=== PATIENT | male | born 1925 | race Caucasian/White ===

== ENCOUNTER 2016-11-02 17:50 | Inpatient (IN) | payer OTHER ==
[~2016-11-02] VITALS: Ht 175.3 cm; Wt 74.4 kg
[2016-11-02] MEDS ORDERED: OMEP20CA10 PO (18:16)
[2016-11-02] MEDS ORDERED: TAMS-12 PO (18:16)
[2016-11-02] MEDS ORDERED: SIMV40TA5 PO (18:16)
[2016-11-02] MEDS ORDERED: FERR-58 PO (18:16)
[2016-11-02] MEDS ORDERED: DOCU-25 PO (18:16)
[2016-11-02] MEDS ORDERED: ASPI-991 PO (18:16)
[2016-11-02] MEDS ORDERED: HYDR-548 PO (18:16)
[2016-11-02] MEDS ORDERED: SERT25TA PO (18:17)
[2016-11-02] MEDS ORDERED: QUET25TA PO (18:17)
[2016-11-02] MEDS ORDERED: ALEN70TA45 PO (18:18)
[2016-11-02] MEDS ORDERED: MAGNESIUM HYDROXIDE 30 ML UDC PO PRN (18:30)
[2016-11-02] MEDS ORDERED: LORAZEPAM 0.5 MG TABLET PO PRN (18:30)
[2016-11-02] MEDS ORDERED: MAG HYDROX/AL HYDROX/SIMETH 30 ML UDC PO PRN (18:30)
--- NOTE | 2016-11-02 18:30 | NUR ---
PATIENT ADMITTED ON A 5150 HOLD FOR GD AND DTS UNDER THE CARE OF DR DESIR AND DR TRIPP. PATIENT ARRIVED ON UNIT VIA STRETCHER, STABLE CONDITION, DR DESIR AWARE OF ADMISSION. ADMITTING ORDERS IN SYSTEM, BELONGINGS COLLECTED VITALS TAKEN, (BP, 114/63, 02- 97, TEMP 97.2, PULSE 86, RESPIRATIONS 19, WEIGHT- 162). PATIENT INSTRUCTED TO RING CALL VIDAL FOR ASSISTANCE WITH AMBULATION. CALL VIDAL WITHIN REACH, BED IN LOW POSITION, FALL PRECAUTIONS IMPLEMENTED, WILL CONTINUE TO MONITOR Q 15 MIN FOR SAFETY AND BEHAVIOR. WILL ENDORSE TO ONCOMING SHIFT FOR COMPLETION OF ADMISSION.
[2016-11-02 20:00] VITALS: BP 130/68
--- NOTE | 2016-11-02 20:30 | NUR ---
GPS RN NOTES RECEIVED PATIENT AWAKE IN BED. ASSESSMENT OF BODY SYSTEMS COMPLETED. SKIN/BODY CHECK DONE. PICTURES TAKEN. PATIENT IS ALERT AND ORIENTED X 2 WITH CONFUSION. PATIENT DOES NOT KNOW WHY HE WAS ADMITTED. AMBULATES WITH WALKER. USES URINAL FOR VOIDING. SON CAME TO SEE PATIENT. BELONGINGS CHECKED FOR CONTRABAND ITEMS. CONTRABAND ITEM PLACED IN CONTRABAND LOCKER. PATIENT MADE COMFORTABLE IN BED. NEEDS ATTENDED.
--- NOTE | 2016-11-02 22:00 | NUR ---
GPS RN NOTES CALL MADE TO [employer], CHARGE NURSE WAS ABLE TO SPEAK WITH JIMMIE STOVER. PER JIMMIE, MED. RECON WILL BE DONE BY THE DAY SHIFT. WILL ENDORSE TO DAY SHIFT NURSE TO FOLLOW UP ON MED. RECON.
[2016-11-03] MEDS: TEMAZEPAM 7.5 MG CAPSULE PO PRN ×2 (00:30→22:32)
[2016-11-03] MEDS: ACETAMINOPHEN 325 MG TABLET PO PRN (00:30)
[2016-11-03 07:46] LABS: ALBUMIN 2.9 g/dL (3.4-5.0); BILIRUBIN,TOTAL 0.5 mg/dL (0.2-1.0); CALCIUM, SERUM 7.8 mg/dL (8.5-10.1); CREATININE 0.9 mg/dL (0.6-1.3); POTASSIUM 3.4 mmol/L (3.5-5.1); TOTAL PROTEIN, SERUM 6.5 g/dL (6.4-8.2)
[2016-11-03 08:00] VITALS: BP 123/71
[2016-11-03] MEDS ORDERED: HYDROCODONE/APAP 10/325MG 1 EA TABLET PO PRN (11:00)
--- NOTE | 2016-11-03 12:18 | NUR ---
Initial discharge plan: Pt. states he resides alone at [address] [place] [address] and wants to return. He states his children help him. SW will follow up with family and MD and will help form safe and proper discharge. No contact information is available at this time and SW will attempt to obtain that information. SW will help form safe and proper discharge.
[2016-11-03] MEDS ORDERED: POTASSIUM CHLORIDE 20 MEQ TAB.PRT.SR PO ONE (13:30)
[2016-11-03 16:05] VITALS: BP 105/63
[2016-11-03] MEDS: FERROUS SULFATE (325 MG) 325 MG/TAB TABLET PO SCH (17:35)
[2016-11-03 20:00] VITALS: BP 138/65
[2016-11-03] MEDS: SIMVASTATIN 40 MG TABLET PO SCH (21:11)
[2016-11-03] MEDS: QUETIAPINE FUMARATE 25 MG TABLET PO SCH (21:11)
[2016-11-04 07:59] LABS: CREATININE 0.9 mg/dL (0.6-1.3); POTASSIUM 3.9 mmol/L (3.5-5.1)
[2016-11-04 08:00] VITALS: BP 117/61
[2016-11-04] MEDS: TAMSULOSIN 0.4 MG CAP.SR.24H PO SCH (08:45)
[2016-11-04] MEDS: PANTOPRAZOLE 40 MG TABLET.DR PO SCH (08:45)
[2016-11-04] MEDS: ASPIRIN EC 81 MG TABLET.DR PO SCH (08:45)
[2016-11-04] MEDS: SERTRALINE HCL 50 MG TABLET PO SCH (08:45)
[2016-11-04] MEDS: FERROUS SULFATE (325 MG) 325 MG/TAB TABLET PO SCH ×2 (08:45→16:57)
[2016-11-04 15:52] VITALS: BP 112/66
[2016-11-04 20:00] VITALS: BP 119/59
[2016-11-04] MEDS: SIMVASTATIN 40 MG TABLET PO SCH (21:41)
[2016-11-04] MEDS: QUETIAPINE FUMARATE 25 MG TABLET PO SCH (21:42)
[2016-11-04] MEDS: TEMAZEPAM 7.5 MG CAPSULE PO PRN (23:38)
[2016-11-05 08:00] VITALS: BP 115/56
[2016-11-05] MEDS: PANTOPRAZOLE 40 MG TABLET.DR PO SCH (08:21)
[2016-11-05] MEDS: SERTRALINE HCL 50 MG TABLET PO SCH (08:21)
[2016-11-05] MEDS: ASPIRIN EC 81 MG TABLET.DR PO SCH (08:21)
[2016-11-05] MEDS: FERROUS SULFATE (325 MG) 325 MG/TAB TABLET PO SCH ×2 (08:21→16:25)
[2016-11-05] MEDS: TAMSULOSIN 0.4 MG CAP.SR.24H PO SCH (08:21)
--- NOTE | 2016-11-05 10:57 | NUR ---
GPS RN NOTE: PT WAS SEEN AND EXAMINE BY DR TRIPP NO NEW ORDERS AT THIS TIME DR AWARE OF PT CONDITION AND LABS NOTIFIED OF FAMILY REQUEST TO CONTACT SON WILL CONTINUE MONITORING FOR SAFETY AND BEHAVIOR Q 15 MIN
[2016-11-05 16:00] VITALS: BP 114/65
--- NOTE | 2016-11-05 18:14 | NUR ---
GPS RN NOTE: PATIENT HAD 1 SEMI SOFT BM NO LOOSE STOOL IN THIS SHIFT
[2016-11-05 20:48] VITALS: BP 108/54
[2016-11-05] MEDS: QUETIAPINE FUMARATE 25 MG TABLET PO SCH (21:11)
[2016-11-05] MEDS: SIMVASTATIN 40 MG TABLET PO SCH (21:11)
[2016-11-05] MEDS: TEMAZEPAM 7.5 MG CAPSULE PO PRN (21:51)
[2016-11-06 08:00] VITALS: BP 100/57
[2016-11-06] MEDS: FERROUS SULFATE (325 MG) 325 MG/TAB TABLET PO SCH ×2 (08:27→16:28)
[2016-11-06] MEDS: TAMSULOSIN 0.4 MG CAP.SR.24H PO SCH (08:27)
[2016-11-06] MEDS: PANTOPRAZOLE 40 MG TABLET.DR PO SCH (08:27)
[2016-11-06] MEDS: SERTRALINE HCL 50 MG TABLET PO SCH (08:27)
[2016-11-06] MEDS: ASPIRIN EC 81 MG TABLET.DR PO SCH (08:27)
--- NOTE | 2016-11-06 10:23 | NUR ---
GPS RN NOTE: PATIENT IN THE ROOM NO S/S DISTRESS NOTED PATIENT CALM AND COOPERATIVE, VSS STABLE.PT COMPLIANT WITH MEDICATIONS AND TX WALK WITH PT THIS MORNING HAD 100% BREAKFAST INTAKE ,WILL CONTINUE MONITORING FOR SAFETY AND BEHAVIOR Q 15 MIN
[2016-11-06 16:00] VITALS: BP 107/55
[2016-11-06 21:10] VITALS: BP 142/77
[2016-11-06] MEDS: SIMVASTATIN 40 MG TABLET PO SCH (21:15)
[2016-11-06] MEDS: QUETIAPINE FUMARATE 25 MG TABLET PO SCH (21:15)
[2016-11-06] MEDS: TEMAZEPAM 7.5 MG CAPSULE PO PRN (22:13)
[2016-11-07 08:00] VITALS: BP 107/63
[2016-11-07] MEDS: PANTOPRAZOLE 40 MG TABLET.DR PO SCH (08:13)
[2016-11-07] MEDS: TAMSULOSIN 0.4 MG CAP.SR.24H PO SCH (08:13)
[2016-11-07] MEDS: SERTRALINE HCL 50 MG TABLET PO SCH (08:13)
[2016-11-07] MEDS: ASPIRIN EC 81 MG TABLET.DR PO SCH (08:13)
[2016-11-07] MEDS: FERROUS SULFATE (325 MG) 325 MG/TAB TABLET PO SCH ×2 (08:13→16:01)
--- NOTE | 2016-11-07 10:02 | NUR ---
UR update: ISRAEL left a voicemail for Andria Farmer [phone] from [facility], asking information about who the clinical review should be provided to. Will update once more information is available.
--- NOTE | 2016-11-07 10:05 | NUR ---
SW left a voicemail for pt's son, Andriy [phone] regarding pt's discharge plan. SW was provided information that pt's son visited and mentioned he wanted his father to go to an assisted living and had a facility in mind. ISRAEL will follow up to start the process.
--- NOTE | 2016-11-07 11:02 | NUR ---
UR update: faxed clinicals (H&Ps, progress notes, labs, facesheet, 5150, tests ordered, notes, med list, vital signs, etc...) to [facility] [phone] fax [phone]. Will follow up
[2016-11-07 16:00] VITALS: BP 100/63
--- NOTE | 2016-11-07 19:30 | NUR ---
GPS RN NOTE, RECEIVED PATIENT AWAKE AND IN BED, PATIENT HAS A COMPLAINT OF HEAD ACHE PAIN AT 2 OUT 10 AT THIS TIME. PATIENT IS BEING TREAT WITH ORAL PAIN MEDICATION FOR THIS PAIN. PATIENT IS DISPLAYING NO S/S OF APPARENT DISTRESS AT THIS TIME. PATIENT BREATHING IS UNLABORED WITH EQUAL RISE AND FALL OF THE CHEST. PATIENT IS ALERT AND ORIENTED X 2 ON ROOM AIR WITH A SPO2 95%. PATIENT COMPLIANT WITH MEDICATION, ANXIOUS, COOPERATIVE, CONFUSED AT TIMES, AND NEEDS REORIENTATION. PATIENT DENIES SUICIDE AND HOMICIDAL IDEATIONS AT THIS TIME. PATIENT ASSISTED WITH TURNING AND REPOSITIONING Q2HR AND PRN FOR COMFORT AND CIRCULATION. PATIENT HAS NO NEEDS AT THIS TIME. PATIENT EDUCATED ON THE USE OF THE CALL VIDAL. PATIENT BED SIDE RAILS UP X2 FOR SAFETY, BED IS LOCKED AND LOW WILL CONTINUE TO MONITOR AND MAINTAIN SAFETY.
[2016-11-07] MEDS: ACETAMINOPHEN 325 MG TABLET PO PRN (19:56)
--- NOTE | 2016-11-07 19:56 | NUR ---
GPS RN NOTE, PATIENT HAS A COMPLAINT OF HEAD ACHE AT 2 OUT 10 ON THE PAIN SCALE. PATIENT VITAL SIGNS ARE STABLE. GAVE TYLENOL 650MG PO Q6HR PRN ORDERED. WILL REASSESS PAIN AND I WILL CONTINUE TO MONITOR THIS PATIENT.
[2016-11-07 20:00] VITALS: BP 103/66
[2016-11-07] MEDS: SIMVASTATIN 40 MG TABLET PO SCH (21:22)
[2016-11-07] MEDS: TEMAZEPAM 7.5 MG CAPSULE PO PRN (21:22)
[2016-11-07] MEDS: QUETIAPINE FUMARATE 25 MG TABLET PO SCH (21:22)
--- NOTE | 2016-11-07 21:22 | NUR ---
GPS RN NOTE, PATIENT HAS A COMPLAINT OF NOT BEING ABLE TO SLEEP AND WOULD LIKE A SLEEPING AID AT THIS TIME. PATIENT VITAL SIGNS ARE STABLE. GAVE RESTORIL 7.5MG PO HS ORDERED. WILL REASSESS FOR INSOMNIA AND I WILL CONTINUE TO MONITOR THIS PATIENT.
[2016-11-08] MEDS ORDERED: ALENDRONATE 70 MG TABLET PO SCH (07:30)
[2016-11-08 08:00] VITALS: BP 124/66
[2016-11-08] MEDS: SERTRALINE HCL 50 MG TABLET PO SCH (08:01)
[2016-11-08] MEDS: FERROUS SULFATE (325 MG) 325 MG/TAB TABLET PO SCH ×2 (08:02→16:25)
[2016-11-08] MEDS: PANTOPRAZOLE 40 MG TABLET.DR PO SCH (08:02)
[2016-11-08] MEDS: ASPIRIN EC 81 MG TABLET.DR PO SCH (08:02)
[2016-11-08] MEDS: TAMSULOSIN 0.4 MG CAP.SR.24H PO SCH (08:02)
--- NOTE | 2016-11-08 12:42 | NUR ---
UR update: ISRAEL spoke with Morgan from [facility] [phone] and notified him that pt. has been accepted but will not be transferred until 09 of November or 10 of November. Morgan requested that pt. be discharged on as he cannot authorize for too many days for just placement. ISRAEL spoke with pt's son, Andriy [phone] and Andriy said he will speak with the facility.
--- NOTE | 2016-11-08 12:47 | NUR ---
Pt has been accepted to [facility] [address] [place], [place] [address] . ISRAEL spoke with Savannah Craig, Resolution Expert, and she said pt. can be admitted on November.
[2016-11-08 16:21] VITALS: BP 103/59
[2016-11-08 20:00] VITALS: BP 110/65
[2016-11-08 20:21] VITALS: BP 110/63
[2016-11-08] MEDS: TEMAZEPAM 7.5 MG CAPSULE PO PRN (20:50)
[2016-11-08] MEDS: SIMVASTATIN 40 MG TABLET PO SCH (20:51)
[2016-11-08] MEDS: QUETIAPINE FUMARATE 25 MG TABLET PO SCH (20:51)
[2016-11-09] MEDS: FERROUS SULFATE (325 MG) 325 MG/TAB TABLET PO SCH (08:55)
[2016-11-09] MEDS: ASPIRIN EC 81 MG TABLET.DR PO SCH (08:55)
[2016-11-09] MEDS: SERTRALINE HCL 50 MG TABLET PO SCH (08:55)
[2016-11-09] MEDS: TAMSULOSIN 0.4 MG CAP.SR.24H PO SCH (08:55)
[2016-11-09] MEDS: PANTOPRAZOLE 40 MG TABLET.DR PO SCH (08:55)
[2016-11-09 09:01] VITALS: BP 122/66
--- NOTE | 2016-11-09 12:30 | NUR ---
GPS AUTOMATION AND CONTROLS MANAGER NOTES: PATIENT DISCHARGED TO [facility]. PATIENT'S CONDITION IS STABLE FOR DISCHARGE, VS STABLE. PATIENT DENIES SI/HI/AVH AT THE TIME OF DISCHARGE. ALL BELONGINGS RETURNED TO THE PATIENT. EDUCATIONAL EXIT CARE PRINTED, SIGNED AND PROVIDED TO THE PATIENT ALONG WITH THE PRESCRIPTIONS. PATIENT PICKED UP BY THE SON, LOU, LEFT THE UNIT IN THE WHEELCHAIR ACCOMPANIED BY THE SON AND STAFF MEMBER. LEFT VIA PRIVATE CAR.
--- NOTE | 2016-11-09 14:22 | NUR ---
Discharge note: Pt. was discharged to [address] [id number] and son, Andriy [phone] picked him up and transferred him via private car. Pt. was calm and cooperative and agreed with the discharge plan. Pt's son was also agreeable. Pt. denied suicidal/homicidal ideations and hallucinations. ISRAEL spoke with Morgan from [facility] [phone] who will arrange the after care with a psychiatrist and will forward that information to the licensed clinical social worker ( will update when information is received ). Discharge paperwork (continuing care form) was signed and discharge instructions were provided to the patients son and pt.
--- NOTE | 2016-11-09 14:32 | NUR ---
UR update: ISRAEL spoke with Morgan from [facility] [phone] and faxed updated clinicals and discharge information to [phone].
== END 2016-11-09 12:30 | DRG 885 ==
LOC: GPS 17:50
PROVIDERS: ADMIT Psychiatry & Neurology Psychiatry; ATTEND Family Medicine
DX: F32.2 Major depressive disorder, single episode, severe without psychotic features (principal); E44.0 Moderate protein-calorie malnutrition; E87.6 Hypokalemia; E78.5 Hyperlipidemia, unspecified; N40.0 Benign prostatic hyperplasia without lower urinary tract symptoms; Z79.899 Other long term (current) drug therapy; D64.9 Anemia, unspecified; K21.9 Gastro-esophageal reflux disease without esophagitis; M81.0 Age-related osteoporosis without current pathological fracture; Z87.891 Personal history of nicotine dependence; Z96.649 Presence of unspecified artificial hip joint; Z73.6 Limitation of activities due to disability; Z68.24 Body mass index [BMI] 24.0-24.9, adult
CPT/HCPCS: 36415; 71010-TC; 80048-TC; 80053-TC; 87081-TC; 97001-TC; 97116-TC; 97530-TC; A6402